=== PATIENT | male | born 1975 | race Asian ===

== ENCOUNTER → 2021-10-10 | Outpatient (CLI) | payer OTHER ==
[2021-10-11 02:06] LABS: RUBELLA AB IGG-REFLAB 8.17 index (Immune >0.99); RUBEOLA (MEASLES) IGG 22.6 AU/mL (Immune >16.4)
== END | disposition home or self-care (01) ==
LOC: LABMN 09:44
PROVIDERS: ATTEND Internal Medicine
DX: Z02.1 Encounter for pre-employment examination (principal)
CPT/HCPCS: 86706; 86735; 86762; 86765; 86787

== ENCOUNTER 2022-03-13 13:24 | Emergency (ER) | payer OTHER ==
[~2022-03-13] VITALS: Ht 170.2 cm; Wt 111.4 kg
[2022-03-13 13:34] VITALS: BP 138/84
[2022-03-13] MEDS ORDERED: SODIUM CHLORIDE 0.9% 1,000 ML IV ONE (14:30)
[2022-03-13] MEDS ORDERED: ONDANSETRON HCL 4 MG/2 ML VIAL IVP ONE (14:30)
[2022-03-13] MEDS ORDERED: IOHEXOL 300 MG/ML 100 ML VIAL ONE (14:36)
[2022-03-13] MEDS ORDERED: SODIUM CHLORIDE 0.9% 100 ML ONE (14:37)
[2022-03-13 14:46] LABS: BASOPHILS % (AUTO) 0.3 % (0.0-2.0); EOSINOPHILS % (AUTO) 0.6 % (1.0-6.0); HEMATOCRIT 46.7 % (41-53); HEMOGLOBIN 16.1 g/dL (13.5-17.5); LYMPHOCYTES # (AUTO) 1.7 K/uL (1.0-4.8); LYMPHOCYTES % (AUTO) 20.7 % (22.0-44.0); MEAN CORPUSCULAR HEMOGLOBIN 29.4 pg (26.0-34.0); MEAN CORPUSCULAR HGB CONC 34.4 G/dL (31.0-37.0); MEAN CORPUSCULAR VOLUME 86 fL (80-100); MONOCYTES # (AUTO) 0.6 K/uL (0.1-1.0); NEUTROPHILS # (AUTO) 5.7 K/uL (1.8-7.7); NEUTROPHILS % (AUTO) 70.4 % (40.0-70.0); PLATELET COUNT (AUTO) 186 K/uL (150-450); RED BLOOD CELL COUNT(AUTO) 5.46 MIL/uL (4.50-5.90); RED CELL DISTRIBUTION WIDTH 13.3 % (11.5-14.5)
[2022-03-13 14:56] LABS: ANION GAP 9 mmol/L (8-16); CARBON DIOXIDE 26 mmol/L (22-29); CHLORIDE 103 mmol/L (98-107); CREATININE 0.99 mg/dL (0.60-1.30); GLOMERULAR FILTR. RATE CALC > 60 mL/min (>60); GLUCOSE,RANDOM 109 mg/dL (70-110); POTASSIUM 3.8 mmol/L (3.5-5.1); SODIUM SERUM 138 mmol/L (136-145); UREA NITROGEN, BLOOD 12 mg/dL (7-18)
[2022-03-13 15:02] LABS: ALANINE AMINOTRANSFERASE 53 U/L (12-78); ALKALINE PHOSPHATASE 162 U/L (46-116); ASPARTATE AMINOTRANSFERASE 24 U/L (15-37); BILIRUBIN,TOTAL 0.4 mg/dL (0.1-1.0); TOTAL PROTEIN, SERUM 7.6 g/dL (6.4-8.2)
[2022-03-13 15:15] LABS: INR 1.1 (0.9-1.1); PROTHROMBIN TIME 11.4 SEC (9.4-11.6)
[2022-03-13 15:53] LABS: APPEARANCE,URINE HAZY (CLEAR); BILIRUBIN,URINE NEGATIVE (NEGATIVE); GLUCOSE, URINE (UA) NEGATIVE (NEGATIVE); KETONES,URINE NEGATIVE (NEGATIVE); LEUKOCYTE ESTERASE ,URINE NEGATIVE (NEGATIVE); NITRATE,URINE NEGATIVE (NEGATIVE); OCCULT BLOOD,URINE LARGE (NEGATIVE); PH,URINE 7.5 (5.0-8.0); PROTEIN,URINE TRACE mg/dL (NEGATIVE); SPECIFIC GRAVITIY, URINE 1.014 (1.003-1.030); UROBILINOGEN,URINE <=1.0 mg/dL (<=1.0)
[2022-03-13 16:19] LABS: RBC,URINE >100 /HPF (0-2)
[2022-03-13 16:20] LABS: BACTERIA,URINE Rare /HPF (None Seen); WBC,URINE 0-2 /HPF (0-5)
[2022-03-13] MEDS ORDERED: OXYC-38 PO (16:37)
[2022-03-13] MEDS ORDERED: IBUP-2070 PO (16:37)
== END 2022-03-13 16:57 | disposition home or self-care (01) ==
LOC: EMS 13:24
DX: N20.9 Urinary calculus, unspecified (principal); Z87.19 Personal history of other diseases of the digestive system; Z90.49 Acquired absence of other specified parts of digestive tract
CPT/HCPCS: 36415; 71045; 74177; 80053; 81001; 84484; 85025; 85610; 85730; 93005; 96361; 96374; 99285; J2405; J7050; Q9967

== ENCOUNTER → 2025-07-06 | Day surgery (SDC) | payer OTHER ==
[~2025-07-06] VITALS: Ht 170.2 cm; Wt 116.6 kg
[~2025-07-06] MED LIST: AMLO10TA55 PO; ATOR20TA65 PO; IBUP-1492 PO; LEVO5TAB13 PO; LOSA-382 PO; METF-1211 PO; METO-325 PO; OXYC-38 PO; PROPOFOL 1% 20 ML VIAL IVP ONE; SEMA1PEN3 INJ; SODIUM CHLORIDE 0.9% 1,000 ML IV ONE; SODIUM CHLORIDE 0.9% 1,000 ML ONE; TAMS0.4C94 PO
[2025-07-06 09:06] LABS: GLUCOMETER DEV NAME(LOC) SDS.; GLUCOSE,POINT OF CARE 104 MG/DL (70-110)
== END | disposition home or self-care (01) ==
LOC: SDS 07:48
PROVIDERS: ATTEND Internal Medicine Gastroenterology
DX: R19.4 Change in bowel habit (principal); R10.31 Right lower quadrant pain; K63.5 Polyp of colon; K57.30 Diverticulosis of large intestine without perforation or abscess without bleeding; I10 Essential (primary) hypertension; E11.9 Type 2 diabetes mellitus without complications; E66.9 Obesity, unspecified; Z79.84 Long term (current) use of oral hypoglycemic drugs; Z79.899 Other long term (current) drug therapy; Z90.49 Acquired absence of other specified parts of digestive tract; Z98.890 Other specified postprocedural states; Z68.41 Body mass index [BMI] 40.0-44.9, adult
CPT/HCPCS: 45380; 82962; J2704; J7030; 88305

== ENCOUNTER 2025-07-23 10:47 | Emergency (ER) | payer OTHER ==
[~2025-07-23] VITALS: Ht 170.2 cm; Wt 110.9 kg
[~2025-07-23 10:47] MED LIST changes: -PROPOFOL 1% 20 ML VIAL IVP ONE; -SODIUM CHLORIDE 0.9% 1,000 ML IV ONE; -SODIUM CHLORIDE 0.9% 1,000 ML ONE
[2025-07-23 10:57] VITALS: TEMP 98.1
[2025-07-23 11:11] LABS: GLUCOMETER DEV NAME(LOC) ERT.7; GLUCOSE,POINT OF CARE 119 MG/DL (70-110)
[2025-07-23 11:29] LABS: PLATELET COUNT (AUTO) 208 K/uL (150-450); RED BLOOD CELL COUNT(AUTO) 5.10 MIL/uL (4.50-5.90); RED CELL DISTRIBUTION WIDTH 13.4 % (11.5-14.5); WHITE BLOOD COUNT (AUTO) 8.5 K/uL (4.5-11.0)
[2025-07-23 11:37] LABS: CALCIUM, TOTAL 8.7 mg/dL (8.8-10.5); CREATININE 1.10 mg/dL (0.60-1.30); GLOMERULAR FILTR. RATE CALC > 60 mL/min (>60); GLUCOSE,RANDOM 114 mg/dL (70-110); SODIUM SERUM 141 mmol/L (136-145); UREA NITROGEN, BLOOD 12 mg/dL (7-18)
[2025-07-23 11:39] LABS: ASPARTATE AMINOTRANSFERASE 21.0 U/L (15-37); TOTAL PROTEIN, SERUM 7.7 g/dL (6.4-8.2)
[2025-07-23 11:53] LABS: APPEARANCE,URINE CLEAR (CLEAR); GLUCOSE, URINE (UA) NEGATIVE (NEGATIVE); LEUKOCYTE ESTERASE ,URINE NEGATIVE (NEGATIVE); NITRATE,URINE NEGATIVE (NEGATIVE); OCCULT BLOOD,URINE LARGE (NEGATIVE); SPECIFIC GRAVITIY, URINE 1.015 (1.003-1.030)
[2025-07-23] MEDS: ONDANSETRON HCL 4 MG/2 ML VIAL IVP ONE (13:15)
[2025-07-23] MEDS: KETOROLAC TROMETHAMINE 30 MG/ML VIAL IVP ONE (13:15)
[2025-07-23] MEDS: SODIUM CHLORIDE 0.9% 1,000 ML IV ONE (13:26)
[2025-07-23] MEDS ORDERED: POLY119P3 PO (14:46)
[2025-07-23] MEDS ORDERED: HYDR-4062 PO (14:46)
[2025-07-23] MEDS ORDERED: IBUP-1554 PO (14:46)
[2025-07-23 15:20] VITALS: BP 116/69; PULSE 80; RESP 16; O2SAT 97
== END 2025-07-23 16:24 | disposition home or self-care (01) ==
LOC: EMS 10:52
DX: N20.9 Urinary calculus, unspecified (principal); R10.A1 Flank pain, right side; R11.0 Nausea; Z87.442 Personal history of urinary calculi; Z90.49 Acquired absence of other specified parts of digestive tract; Z79.899 Other long term (current) drug therapy
CPT/HCPCS: 99285; 74176; 96374; 96375; 96361; 80048; 80076; 81001; 82962; 83690; 85025; 36415; J1885; J1171; J2405; J7030